=== PATIENT | male | born 1995 | race Caucasian/White ===

== ENCOUNTER 2017-09-24 10:54 | Inpatient (IN) | payer BC, OTHER ==
[~2017-09-24] VITALS: Ht 177.8 cm; Wt 90.7 kg
[2017-09-24] MEDS ORDERED: diphenhydrAMINE 50 MG CAPSULE PO PRN (13:00)
[2017-09-24] MEDS ORDERED: MIRALAX 17 GM POWD.PACK PO PRN (13:00)
[2017-09-24] MEDS ORDERED: MAGNESIUM HYDROXIDE 30 ML LIQUID UDC PO PRN (13:00)
[2017-09-24] MEDS ORDERED: IBUPROFEN 400 MG TABLET PO PRN (13:00)
[2017-09-24] MEDS ORDERED: MAG HYDROX/AL HYDROX/SIMETH 30 ML LIQUID UDC PO PRN (13:00)
[2017-09-24] MEDS ORDERED: THIAMINE HCL 200 MG/2 ML VIAL IM ONE (13:00)
[2017-09-24] MEDS ORDERED: DICYCLOMINE HCL 20 MG TABLET PO PRN (13:00)
[2017-09-24] MEDS ORDERED: LORAZEPAM 1 MG TABLET PO PRN (13:00)
[2017-09-24] MEDS ORDERED: ACETAMINOPHEN 325 MG TABLET PO PRN (13:00)
[2017-09-24] MEDS ORDERED: ONDANSETRON ODT 4 MG TAB.RAPDIS SL PRN (13:00)
[2017-09-24] MEDS ORDERED: ONDANSETRON 4 MG/2 ML VIAL IM PRN (13:00)
[2017-09-24] MEDS ORDERED: LORAZEPAM 2 MG/1 ML VIAL IM PRN (13:00)
[2017-09-24] MEDS ORDERED: CLONIDINE HCL 0.1 MG TABLET PO PRN (13:00)
[2017-09-24] MEDS ORDERED: LOPERAMIDE HCL 2 MG CAPSULE PO PRN ×2 (13:00)
[2017-09-24] MEDS ORDERED: OXCA300T PO (13:08)
[2017-09-24] MEDS ORDERED: QUET100T PO (13:08)
[2017-09-24 15:32] LABS: BASOPHILS # (AUTO) 0.1 K/uL (0.0-8.0); BASOPHILS % (AUTO) 1.1 % (0.0-2.0); EOSINOPHILS # (AUTO) 0.3 K/uL (0.0-0.7); EOSINOPHILS % (AUTO) 2.5 % (0.0-7.0); HEMATOCRIT 44.2 % (36.7-47.1); HEMOGLOBIN 15.4 g/dL (12.5-16.3); LYMPHOCYTES # (AUTO) 2.4 K/uL (20.0-40.0); MEAN CORPUSCULAR HEMOGLOBIN 29.9 uug (23.8-33.4); MEAN CORPUSCULAR HGB CONC 35 g/dL (32.5-36.3); MONOCYTES # (AUTO) 0.9 K/uL (2.0-10.0); MONOCYTES % (AUTO) 7.8 % (0.0-11.0); NEUTROPHILS # (AUTO) 7.7 K/uL (1.8-8.9); NEUTROPHILS % (AUTO) 67.6 % (38.5-71.5); PLATELET COUNT (AUTO) 224 K/uL (152-348); RED BLOOD CELL COUNT(AUTO) 5.14 MIL/uL (4.06-5.63); WHITE BLOOD COUNT (AUTO) 11.4 K/uL (3.6-10.2)
[2017-09-24 15:40] LABS: *AMPHETAMINE, URINE NEGATIVE (NEGATIVE); *BARBITURATE, URINE NEGATIVE (NEGATIVE); *CANNABINOID, URINE NEGATIVE (NEGATIVE); *COCCAINE, URINE NEGATIVE (NEGATIVE); *OPIATE, URINE NEGATIVE (NEGATIVE); *PHENCYCLIDINE SCREEN,URINE NEGATIVE (NEGATIVE)
[2017-09-24 15:43] LABS: ETHANOL < 3 MG/DL (0-0)
[2017-09-24 15:47] LABS: ALANINE AMINOTRANSFERASE 116 U/L (16-63); ALKALINE PHOSPHATASE 79 U/L (50-136); AMYLASE 95 U/L (25-115); ASPARTATE AMINOTRANSFERASE 58 U/L (15-37); BILIRUBIN,TOTAL 0.5 mg/dL (0.2-1.0); CARBON DIOXIDE 32 mmol/L (21-32); CHLORIDE 102 mmol/L (98-107); GLUCOSE 105 mg/dL (74-106); MAGNESIUM 2.1 mg/dL (1.8-2.4); POTASSIUM 3.7 mmol/L (3.5-5.1); TOTAL PROTEIN, SERUM 6.7 g/dL (6.4-8.2); UREA NITROGEN, BLOOD 10 mg/dL (7-18)
[2017-09-24 16:00] VITALS: BP 129/68
[2017-09-24 20:06] VITALS: BP 143/82
[2017-09-24] MEDS: LORAZEPAM 1 MG TABLET PO PRN (20:42)
[2017-09-25 08:00] VITALS: BP 135/75
[2017-09-25] MEDS: THIAMINE HCL 100 MG TABLET PO SCH (08:27)
[2017-09-25] MEDS: MULTIVITAMINS,THERAPEUTIC TABLET PO SCH (08:27)
[2017-09-25] MEDS: FOLIC ACID 1 MG TABLET PO SCH (08:27)
[2017-09-25] MEDS: LORAZEPAM 1 MG TABLET PO PRN (08:28)
[2017-09-25] MEDS ORDERED: TUBERCULIN,PURIF.PROT.DERIV. 5 TU/0.1 ML TEST ID ONE (09:00)
[2017-09-25] MEDS: OXCARBAZEPINE 300 MG TABLET PO SCH ×2 (10:32→20:26)
[2017-09-25] MEDS ORDERED: HYDROXYZINE PAMOATE 25 MG CAPSULE PO PRN (11:30)
[2017-09-25 12:00] VITALS: BP 159/68
[2017-09-25] MEDS ORDERED: CLON0.1T14 PO (12:41)
[2017-09-25] MEDS ORDERED: IBUP-1953 PO (12:41)
[2017-09-25] MEDS ORDERED: HYDR-3895 PO (12:41)
[2017-09-25 16:00] VITALS: BP 148/74
[2017-09-25 20:09] VITALS: BP 153/88
[2017-09-25] MEDS ORDERED: QUETIAPINE FUMARATE 100 MG TABLET PO SCH (21:00)
[2017-09-26] VITALS: BP 144/80
[2017-09-26] MEDS: MULTIVITAMINS,THERAPEUTIC TABLET PO SCH ×2 (07:57→09:00)
[2017-09-26] MEDS: FOLIC ACID 1 MG TABLET PO SCH ×3 (07:57→09:00)
[2017-09-26] MEDS: OXCARBAZEPINE 300 MG TABLET PO SCH (07:57)
[2017-09-26] MEDS: THIAMINE HCL 100 MG TABLET PO SCH ×2 (07:57→09:00)
[2017-09-26 08:00] VITALS: BP 122/61
[2017-09-26 10:07] LABS: HEPATITIS B SURFACE AG Negative (Negative)
== END 2017-09-26 09:43 | disposition other institution (70) | DRG 895 ==
LOC: SRC 12:15
PROVIDERS: ADMIT Internal Medicine; ATTEND Internal Medicine
PROC: HZ2ZZZZ Detoxification Services for Substance Abuse Treatment (ICD-10-PCS; principal; 2017-09-24)
PROC: HZ51ZZZ Individual Psychotherapy for Substance Abuse Treatment, Behavioral (ICD-10-PCS; 2017-09-26)
DX: F10.230 Alcohol dependence with withdrawal, uncomplicated (principal); F14.20 Cocaine dependence, uncomplicated; I15.9 Secondary hypertension, unspecified; F31.63 Bipolar disorder, current episode mixed, severe, without psychotic features; F17.210 Nicotine dependence, cigarettes, uncomplicated; Z59.0 Homelessness; Y90.0 Blood alcohol level of less than 20 mg/100 ml; F41.9 Anxiety disorder, unspecified; F90.9 Attention-deficit hyperactivity disorder, unspecified type; Z91.5 Personal history of self-harm; Z79.899 Other long term (current) drug therapy; Z59.1 Inadequate housing; D72.823 Leukemoid reaction
CPT/HCPCS: 36415; 80307; 83735; 85025; 86580; 86592; 86705; 86803; 87340; 87806; G0480; Q0163